=== PATIENT | female | born 1945 ===

== ENCOUNTER 2021-11-16 15:24 | Inpatient (IN) | payer OTHER ==
[~2021-11-16] VITALS: Ht 165.1 cm; Wt 82.6 kg
[2021-12-07] MEDS ORDERED: ANASTROZOLE1 MG PO (12:41)
[2021-12-07] MEDS ORDERED: FLECAINIDE ACE100 MG PO (12:42)
[2021-12-07] MEDS ORDERED: XARELTO20 MG PO (12:42)
[2021-12-07] MEDS ORDERED: ATENOLOL25 MG PO (12:43)
[2021-12-07] MEDS ORDERED: ATORVASTATIN CA10 MG PO (12:43)
== END 2021-12-20 17:46 | disposition home or self-care (01) | DRG 330 ==
LOC: SURH 12-13 06:00 → O/R 12-13 06:00 → SURG 12-13 07:00 → SURH 12-13 10:29 → O/R 12-13 11:08 → SURH 12-13 11:09
PROVIDERS: ADMIT Colon & Rectal Surgery; ATTEND Colon & Rectal Surgery
PROC: 0DBP4ZZ Excision of Rectum, Percutaneous Endoscopic Approach (ICD-10-PCS; 2021-12-13)
PROC: 0DJD8ZZ Inspection of Lower Intestinal Tract, Via Natural or Artificial Opening Endoscopic (ICD-10-PCS; 2021-12-13)
PROC: 4A12X4Z Monitoring of Cardiac Electrical Activity, External Approach (ICD-10-PCS; 2021-12-13)
PROC: 0DTN4ZZ Resection of Sigmoid Colon, Percutaneous Endoscopic Approach (ICD-10-PCS; principal; 2021-12-13 07:00)
DX: K57.32 Diverticulitis of large intestine without perforation or abscess without bleeding (principal); K92.1 Melena; K29.00 Acute gastritis without bleeding; I11.9 Hypertensive heart disease without heart failure; I48.0 Paroxysmal atrial fibrillation; Z20.822 Contact with and (suspected) exposure to COVID-19; K21.9 Gastro-esophageal reflux disease without esophagitis; C50.912 Malignant neoplasm of unspecified site of left female breast